=== PATIENT | male | born 1975 | race Caucasian/White ===

== ENCOUNTER 2020-08-17 19:39 | Emergency (ER) | payer SELFPAY ==
[2020-08-17 19:49] VITALS: BP 132/92; PULSE 100; RESP 16; TEMP 36.7; O2SAT 99; BMI 19.0
--- NOTE | 2020-08-17 20:52 | XR_ITS ---
WS: [id number] Right hip, AP and frog leg views, 08/17/2020 Clinical Data: pain Comparison: None. Findings: No fractures or dislocations are seen. The hip joint is intact. The soft tissues are not remarkable. The adjacent pelvis is normal. There is cystic change and irregularity of the femoral head. XR/XR hip RT 2-3V wo/w pel* [id number] Impression: Osteoarthritis of the right femoral head.
--- NOTE | 2020-08-17 20:55 | W.ED.GENADLT ---
HPI - General Adult General: Chief complaint: General Medical Stated complaint: right side groin pain Time Seen by Provider: 08/17/20 20:48 Source: patient Mode of arrival: ambulatory Limitations: no limitations History of Present Illness: HPI narrative: 45-year-old male states been having right-sided hip pain for last 2 to 3 months. He states pain is sharp in nature much worse with movement. He denies any known injuries. He states he has been seen at multiple places states that x-rays have been normal. He has not followed up with a PCP. Denies any fever. Denies any testicle or penile pain Associated symptoms: Deny chest pain, dyspnea, headache(s), nausea, rash or vomiting Review of Systems Const: Denies: fever(s), chills, body aches or change in appetite Eyes: Denies: blurry vision or eye discomfort ENMT: Denies: throat pain or dental pain Card: Denies: chest pain Resp: Denies: dyspnea GI: Denies: abdominal pain, nausea, vomiting or diarrhea : Denies: dysuria Musc: Reports: joint pain; Denies: neck pain or back pain Skin/Breast: Denies: rash Neuro: Denies: headache(s) Psych: Denies: depression Álvaro/Lymph: Denies: easy bruising All/Imm: Denies: urticaria Physical Exam Const: COMMON NORMALS: no acute distress, patient oriented x3 and healthy appearing HENMT: COMMON NORMALS: normocephalic and atraumatic HEAD & SCALP: normocephalic and atraumatic Eye: COMMON NORMALS: Equal, round and reactive pupils present and EOMs intact bilaterally PUPIL: Yes Equal, round and reactive pupils present Neck/C-Spine: COMMON NORMALS: full ROM and supple Chest: COMMONS NORMALS: normal inspection of the chest and normal palpation of entire chest wall Resp: COMMON NORMALS: normal respiratory effort, No retractions, No use of accessory muscles and clear to auscultation bilaterally AUSCULTATION: clear to auscultation bilaterally Cardio: COMMON NORMALS: regular rate, regular rhythm and No murmurs present (Cardio) RATE: regular rate RHYTHM: regular rhythm GI: COMMON NORMALS: Normal to inspection, nondistended, normoactive bowel sounds present, Soft to palpation, non-tender and no masses PALPATION: Yes Soft to palpation Extremity: COMMON NORMALS: normal to inspection and full ROM NARRATIVE EXTREMITY EXAM: Slight tenderness over right lateral hip does have some pain with movement. He has good femoral pulses and no warmth to his joint. Neuro: COMMON NORMALS: patient oriented x3, moves all extremities and no focal motor deficits Psych: COMMON NORMALS: mental status grossly normal, Normal thought process present and cooperative THOUGHT PROCESS: Normal thought process present Skin: COMMON NORMALS: no rashes or lesions noted and no wounds GENERAL SKIN EXAM: no rashes or lesions noted Course Vital Signs: Vital signs: Vital Signs Temperature 98.0 F 08/17/20 19:49 Pulse Rate 100 08/17/20 19:49 Respiratory Rate 16 08/17/20 19:49 Blood Pressure 132/92 08/17/20 19:49 Pulse Oximetry 99 08/17/20 19:49 MDM - General Adult MDM Narrative: Medical decision making narrative: Patient presents with hip pain and is likely muscular arthritic. He has no signs of infected joint. 11 follow-up with orthopedics and placed him on Naprosyn. He is stable for discharge and is to follow-up PCP and return if worsening. Imaging Data^: X-ray right hip: Attestation: I personally reviewed and interpreted this imaging study as follows: My impression: No acute normality Discharge Plan Discharge Patient Disposition: Home Clinical Impression: Hip pain, right Condition: Stable Prescriptions: New Naprosyn 500 mg tablet 500 mg PO BID PRN (Reason: pain) Qty: 20 RF: 0 No Action citalopram 40 mg Tablet 40 mg PO QAM RF: 0 Discharge Orders: Discharge ED (Routine); Ordered 08/17/20 Ordered By: Chidi Armstrong Referrals: Sarah Barrett MD [Physician] - 1-3 days Discharge Diet: Advance as tolerated Discharge Activity: Resume usual activity Patient Instructions: Arthralgia (ED) Coding Level of Care Code ED [facility] for Chg Fwd Exam Comprehensive
[2020-08-17] MEDS: ketorolac 30 mg/mL INJ IM (21:02)
[2020-08-17 21:15] VITALS: BP 114/78; RESP 16; O2SAT 99
--- NOTE | 2020-08-18 09:18 | DCPLANNER ---
environmental conflict manager had message to schedule a follow up appointment for patient with ortho. environmental conflict manager called the ortho clinic, spoke with Alejandra, gave clinic patients information. environmental conflict manager was told that patients information would be printed and reviewed. Clinic will call patient with appointment information.
--- NOTE | 2020-08-20 11:04 | DCPLANNER ---
Patient has a follow up appointment scheduled for August at 8:[address] Barrett. Clinic will call patient with appointment information.
--- NOTE | 2020-09-09 14:00 | DCPLANNER ---
Patient had a follow up appointment scheduled for 09.02.20 with ortho - patient did not attend appointment.
== END 2020-08-17 21:16 | disposition home or self-care (01) ==
PROVIDERS: Emergency Provider Emergency Medicine
DX: M25.551 Pain in right hip (principal)
CPT/HCPCS: 12345; 73502; 96372; 99281; 99283; J1885